=== PATIENT | female | born 1945 | race Caucasian/White ===

== ENCOUNTER 2019-04-09 19:02 | Emergency (ER) | payer MEDICARE, MEDICAID ==
[~2019-04-09] VITALS: Ht 162.6 cm; Wt 47.2 kg
--- NOTE | 2019-04-09 19:20 | NUR ---
PRESENTED TO THE ER W/ C/O GENERALIZED BODY RASHED AND ABD PAIN. -N/V. NO DYSURIA. NO HEMATURIA
[2019-04-09] MEDS ORDERED: IV NS 0.9% 1,000 ML BAG IV ONE (19:30)
[2019-04-09 19:39] LABS: BASOPHILS # (AUTO) 0.1 /CMM (0.0-0.2); EOSINOPHILS % (AUTO) 2.6 % (0.0-6.0); HEMATOCRIT 46 % (33-45); HEMOGLOBIN 15.5 g/dL (11.5-14.8); LYMPHOCYTES % (AUTO) 23.2 % (20.0-44.0); MEAN CORPUSCULAR HGB CONC 34 g/dl (31.0-36.0); MEAN CORPUSCULAR VOLUME 91 fL (82-100); MONOCYTES # (AUTO) 0.6 /CMM (0.1-1.30); MONOCYTES % (AUTO) 6.4 % (2.0-12.0); NEUTROPHILS # (AUTO) 5.8 /CMM (1.8-8.9); NEUTROPHILS % (AUTO) 66.8 % (43.0-81.0); PLATELET COUNT (AUTO) 359 /CMM (150-450); RED BLOOD CELL COUNT(AUTO) 5.06 MIL/uL (4.0-5.2); WHITE BLOOD COUNT (AUTO) 8.7 K/uL (4.3-11.0)
[2019-04-09] MEDS ORDERED: diphenhydrAMINE HCL 50 MG/ML VIAL ONE (19:42)
[2019-04-09] MEDS ORDERED: MAG HYDROX/AL HYDROX/SIMETH 30 ML UDC ONE (19:42)
--- NOTE | 2019-04-09 19:45 | NUR ---
LEFT FOR CT
[2019-04-09 19:56] LABS: CALCIUM, SERUM 9.3 mg/dL (8.5-10.1); CARBON DIOXIDE 28 mmol/L (21-32); CHLORIDE 94 mmol/L (98-107); CREATININE 0.9 mg/dL (0.6-1.3); GLUCOSE 93 mg/dL (74-106); POTASSIUM 3.5 mmol/L (3.5-5.1); SODIUM SERUM 132 mmol/L (136-145); UREA NITROGEN, BLOOD 9 mg/dL (7-18)
[2019-04-09 19:59] LABS: APPEARANCE,URINE CLEAR (CLEAR); BILIRUBIN,URINE NEGATIVE (NEGATIVE); BLOOD, URINE NEGATIVE Ery/uL (NEGATIVE); COLOR,URINE YELLOW (YELLOW); KETONES,URINE NEGATIVE (NEGATIVE); LEUKOCYTE ESTERASE ,URINE NEGATIVE (NEGATIVE); NITRITE, URINE NEGATIVE (NEGATIVE); PH,URINE 7.5 (5.0-8.0); PROTEIN,URINE NEGATIVE (NEGATIVE); UGLUCOSE NEGATIVE (NEGATIVE); UROBILINOGEN,URINE 0.2 EU/dL (0.2)
[2019-04-09] MEDS ORDERED: MAG HYDROX/AL HYDROX/SIMETH 30 ML UDC PO ONE (20:00)
[2019-04-09] MEDS ORDERED: diphenhydrAMINE HCL 50 MG/ML VIAL IV ONE (20:00)
[2019-04-09 20:03] LABS: ALANINE AMINOTRANSFERASE 24 U/L (12-78); ALKALINE PHOSPHATASE 67 U/L (46-116); ASPARTATE AMINOTRANSFERASE 19 U/L (15-37); BILIRUBIN,DIRECT 0.1 mg/dL (0.0-0.2); BILIRUBIN,TOTAL 0.6 mg/dL (0.2-1.0); LIPASE 197 U/L (73-393); TOTAL PROTEIN, SERUM 8.3 g/dL (6.4-8.2)
[2019-04-09] MEDS ORDERED: FAMOTIDINE/PF INJ 20 MG/2 ML VIAL IV ONE ×2 (20:30→20:34)
[2019-04-09] MEDS ORDERED: predniSONE 10 MG TABLET PO ONE (20:30)
[2019-04-09] MEDS ORDERED: predniSONE 20 MG TABLET ONE (20:34)
--- NOTE | 2019-04-09 21:35 | NUR ---
CALLED FOR S TRANSPORT, 30 MIN ETA (APPROX [id number]), TRIP # [id number]
--- NOTE | 2019-04-09 22:30 | NUR ---
TRANSFERRED BACK TO THE FASCILITY IN STABLE CONDITION REPORT GIVEN TO ERNESTINE
[2019-04-09 22:48] VITALS: BP 142/85
== END 2019-04-09 22:49 | disposition home or self-care (01) ==
LOC: ER 19:09
DX: R10.13 Epigastric pain (principal); G89.29 Other chronic pain; R21 Rash and other nonspecific skin eruption; I10 Essential (primary) hypertension; E78.5 Hyperlipidemia, unspecified; J44.9 Chronic obstructive pulmonary disease, unspecified; Z88.1 Allergy status to other antibiotic agents; Z88.8 Allergy status to other drugs, medicaments and biological substances; Z88.6 Allergy status to analgesic agent
CPT/HCPCS: 36415; 71045; 74176; 80048; 80076; 81001; 82962; 83690; 84484; 85025; 93005; 96374; 96375; 99284; J1200; J3490; J7030; J7512; 81000-TC

== ENCOUNTER 2019-04-17 16:54 | Emergency (ER) | payer MEDICARE, MEDICAID ==
[~2019-04-17] VITALS: Ht 162.6 cm; Wt 47.6 kg
--- NOTE | 2019-04-17 16:54 | NUR ---
JOSE D FROM SNF FOR WORSENING SOB; PT AAOX4, PT ON MONITOR, VSS, NAD MD KRISTIAN AT FOR EVAL
[2019-04-17] MEDS ORDERED: FAMO40TA7 PO (17:33)
[2019-04-17] MEDS ORDERED: BUDE10.2 IH (17:33)
[2019-04-17] MEDS ORDERED: DIPH25CA46 PO (17:33)
[2019-04-17] MEDS ORDERED: CETI-108 PO (17:33)
[2019-04-17] MEDS ORDERED: FERR325T23 PO (17:33)
[2019-04-17] MEDS ORDERED: MULT-447 PO (17:33)
[2019-04-17] MEDS ORDERED: IV NS 0.9% 500 ML BAG IV ONE (18:00)
[2019-04-17 18:09] LABS: BASOPHILS # (AUTO) 0.1 /CMM (0.0-0.2); EOSINOPHILS % (AUTO) 5.4 % (0.0-6.0); HEMATOCRIT 41 % (33-45); HEMOGLOBIN 13.7 g/dL (11.5-14.8); LYMPHOCYTES % (AUTO) 26.4 % (20.0-44.0); MEAN CORPUSCULAR HGB CONC 33 g/dl (31.0-36.0); MEAN CORPUSCULAR VOLUME 92 fL (82-100); MONOCYTES # (AUTO) 0.6 /CMM (0.1-1.30); MONOCYTES % (AUTO) 7.7 % (2.0-12.0); NEUTROPHILS # (AUTO) 4.5 /CMM (1.8-8.9); NEUTROPHILS % (AUTO) 59.5 % (43.0-81.0); PLATELET COUNT (AUTO) 251 /CMM (150-450); RED BLOOD CELL COUNT(AUTO) 4.46 MIL/uL (4.0-5.2); WHITE BLOOD COUNT (AUTO) 7.5 K/uL (4.3-11.0)
[2019-04-17 18:15] LABS: CALCIUM, SERUM 9.4 mg/dL (8.5-10.1); CARBON DIOXIDE 30 mmol/L (21-32); CHLORIDE 98 mmol/L (98-107); CREATININE 1.2 mg/dL (0.6-1.3); GLUCOSE 89 mg/dL (74-106); POTASSIUM 4.4 mmol/L (3.5-5.1); SODIUM SERUM 133 mmol/L (136-145); UREA NITROGEN, BLOOD 12 mg/dL (7-18)
[2019-04-17 18:21] LABS: ALANINE AMINOTRANSFERASE 23 U/L (12-78); ALBUMIN 3.3 g/dL (3.4-5.0); ALKALINE PHOSPHATASE 56 U/L (46-116); ASPARTATE AMINOTRANSFERASE 17 U/L (15-37); BILIRUBIN,DIRECT 0.1 mg/dL (0.0-0.2); BILIRUBIN,TOTAL 0.4 mg/dL (0.2-1.0); TOTAL PROTEIN, SERUM 6.8 g/dL (6.4-8.2)
[2019-04-17 18:58] LABS: APPEARANCE,URINE Clear (CLEAR); BILIRUBIN,URINE SMALL (NEGATIVE); BLOOD, URINE Negative Ery/uL (NEGATIVE); COLOR,URINE Yellow (YELLOW); KETONES,URINE Trace (NEGATIVE); LEUKOCYTE ESTERASE ,URINE Small (NEGATIVE); NITRITE, URINE Negative (NEGATIVE); PROTEIN,URINE Negative (NEGATIVE); UGLUCOSE Negative (NEGATIVE); UROBILINOGEN,URINE 0.2 EU/dL (0.2)
[2019-04-17 19:20] LABS: BACTERIA,URINE 2+ /HPF (None Seen); RBC,URINE NONE SEEN /HPF (0-2); SQUAMOUS EPITHELIAL CELL,UR Moderate /HPF (None Seen); WBC,URINE 21-50 /HPF (0-3)
[2019-04-17] MEDS ORDERED: diphenhydrAMINE HCL 50 MG/ML VIAL IV ONE (19:30)
[2019-04-17] MEDS ORDERED: NITROFURANTOIN/NITROFURAN MAC 100 MG CAPSULE PO ONE (19:30)
[2019-04-17] MEDS ORDERED: NITROFURANTOIN/NITROFURAN MAC 100 MG CAPSULE ONE (19:41)
[2019-04-17] MEDS ORDERED: diphenhydrAMINE HCL 50 MG/ML VIAL ONE (19:41)
[2019-04-17 20:00] VITALS: BP 119/65
--- NOTE | 2019-04-17 21:57 | NUR ---
CALLED [facility] FOR TRANSPORTATION TRIP #[id number], ETA [phone]
--- NOTE | 2019-04-17 23:23 | NUR ---
REPORT GIVEN TO LISY AT [facility].
--- NOTE | 2019-04-18 01:16 | NUR ---
PT TRANSPORTED BACK TO [facility], PT TRANSPORTED VIA PRIVATE AMBULANCE, VSS, PT IN STABLE CONDITION, REPORT GIVEN TO AMBULANCE STAFF.
== END 2019-04-18 01:18 ==
LOC: ER 16:57
DX: N39.0 Urinary tract infection, site not specified (principal); R06.00 Dyspnea, unspecified; I10 Essential (primary) hypertension; J44.9 Chronic obstructive pulmonary disease, unspecified; I25.10 Atherosclerotic heart disease of native coronary artery without angina pectoris; E78.00 Pure hypercholesterolemia, unspecified; E78.5 Hyperlipidemia, unspecified; Z98.890 Other specified postprocedural states; Z88.1 Allergy status to other antibiotic agents; Z88.8 Allergy status to other drugs, medicaments and biological substances; Z88.6 Allergy status to analgesic agent
CPT/HCPCS: 36415; 71045; 80048; 80076; 81001; 84484; 85025; 87086; 93005 ×2; 96374; 99284; J1200; J7040; 81000-TC

== ENCOUNTER 2019-11-29 18:49 | Inpatient (IN) | payer MEDICARE, MEDICAID ==
[~2019-11-29] VITALS: Ht 167.6 cm; Wt 45.8 kg
[~2019-11-29 18:49] MED LIST: BUDE10.2 IH; CETI-108 PO; DIPH25CA46 PO; FAMO40TA7 PO; FERR325T23 PO; MULT-447 PO
--- NOTE | 2019-11-29 19:28 | NUR ---
PT CAME TO ER BED 11 WITH NO COMPLAINTS. PT STATES SHE IS FROM A [facility] HOME. PT DOES NOT UNDERSTAND WHY SHE IS IN THE ER. PT DOES KNOW SHE WAS BROUGHT BY THE AMBULANCE. UNABLE TO VERIFY MEDICAL HISTORY. PT PASSED STROKE TEST AND SWALLOW EVAL WITH NO NEURO DEFICITS. AAOX4. BREATHING EVENLY AND UNLABORED ON 2L OF NASAL CANNULA. CONNECTED TO MONITOR.
--- NOTE | 2019-11-29 19:38 | NUR ---
SEEN AND EXAMINED BY
[2019-11-29 20:00] LABS: BASOPHILS # (AUTO) 0.1 /CMM (0.0-0.2); BASOPHILS % (AUTO) 1.1 % (0.0-2.0); EOSINOPHILS % (AUTO) 1.9 % (0.0-6.0); HEMATOCRIT 34 % (33-45); HEMOGLOBIN 11.4 g/dL (11.5-14.8); LYMPHOCYTES # (AUTO) 1.2 /CMM (0.8-4.8); LYMPHOCYTES % (AUTO) 17.9 % (20.0-44.0); MEAN CORPUSCULAR HGB CONC 34 g/dl (31.0-36.0); MEAN CORPUSCULAR VOLUME 96 fL (82-100); MONOCYTES # (AUTO) 0.7 /CMM (0.1-1.30); MONOCYTES % (AUTO) 10.6 % (2.0-12.0); NEUTROPHILS # (AUTO) 4.5 /CMM (1.8-8.9); NEUTROPHILS % (AUTO) 68.5 % (43.0-81.0); PLATELET COUNT (AUTO) 238 /CMM (150-450); RED BLOOD CELL COUNT(AUTO) 3.49 MIL/uL (4.0-5.2); WHITE BLOOD COUNT (AUTO) 6.5 K/uL (4.3-11.0)
[2019-11-29] MEDS ORDERED: IV NS 0.9% 1,000 ML BAG IV ONE (20:00)
--- NOTE | 2019-11-29 20:01 | NUR ---
BLOOD DRAWN AND SENT WITH DIVISION SUPERINTENDENT
[2019-11-29 20:09] LABS: CALCIUM, SERUM 8.9 mg/dL (8.5-10.1); CARBON DIOXIDE 31 mmol/L (21-32); CHLORIDE 91 mmol/L (98-107); CREATININE 0.8 mg/dL (0.6-1.3); GLUCOSE 161 mg/dL (74-106); POTASSIUM 4.1 mmol/L (3.5-5.1); SODIUM SERUM 128 mmol/L (136-145); UREA NITROGEN, BLOOD 16 mg/dL (7-18)
[2019-11-29 20:22] LABS: ALANINE AMINOTRANSFERASE 31 U/L (12-78); ALBUMIN 3.6 g/dL (3.4-5.0); ALKALINE PHOSPHATASE 56 U/L (46-116); ASPARTATE AMINOTRANSFERASE 23 U/L (15-37); BILIRUBIN,DIRECT 0.1 mg/dL (0.0-0.2); BILIRUBIN,TOTAL 0.3 mg/dL (0.2-1.0); TOTAL PROTEIN, SERUM 7.2 g/dL (6.4-8.2)
[2019-11-29 20:25] LABS: APPEARANCE,URINE Slightly Cloudy (CLEAR); BILIRUBIN,URINE Negative (NEGATIVE); BLOOD, URINE Negative Ery/uL (NEGATIVE); COLOR,URINE Dark (YELLOW); KETONES,URINE Negative (NEGATIVE); LEUKOCYTE ESTERASE ,URINE Small (NEGATIVE); NITRITE, URINE Negative (NEGATIVE); PROTEIN,URINE Negative (NEGATIVE); UGLUCOSE Negative (NEGATIVE); UROBILINOGEN,URINE 0.2 EU/dL (0.2)
--- NOTE | 2019-11-29 20:26 | NUR ---
URINE COLLECTED AND SENT TO LAB
[2019-11-29 20:49] LABS: BACTERIA,URINE Many /HPF (None Seen); RBC,URINE 0-2 /HPF (0-2); SQUAMOUS EPITHELIAL CELL,UR Few /HPF (None Seen)
[2019-11-29] MEDS ORDERED: LEVOFLOXACIN (500MG) 500 MG TABLET ONE (21:28)
[2019-11-29] MEDS ORDERED: LEVOFLOXACIN (500MG) 500 MG TABLET PO ONE (21:30)
--- NOTE | 2019-11-29 21:40 | NUR ---
CALLED [facility] TO UPDATE PT STATUS. MARNI ANDERSON SAID THEY "DO NOT WANT THE PT BACK AND ARE ARRANGING TO HAVE THE PT LIVE AT A HIGHER SKILLED FACILITY". SAID "IT WILL TAKE A DAY OR TWO TO HAVE THE PT PLACED SOMEWHERE ELSE".
--- NOTE | 2019-11-29 22:07 | NUR ---
CALLED [facility] FOR MS BED.
[2019-11-29] MEDS ORDERED: IV NS 0.9% 1,000 ML IV PRN (22:49)
--- NOTE | 2019-11-29 22:58 | NUR ---
REPORT GIVEN TO YAMILETH HAINES FOR RAFAEL.
[2019-11-29 23:00] VITALS: BP 136/70
[2019-11-29] MEDS ORDERED: IPRATROPIUM NEB FS 0.5 MG/2.5 ML AMPUL.NEB NEB PRN (23:00)
[2019-11-29] MEDS ORDERED: MORPHINE SULFATE INJ 2 MG/ML DISP.SYRIN IV PRN (23:00)
[2019-11-29] MEDS ORDERED: ACETAMINOPHEN 325 MG TABLET PO PRN (23:00)
[2019-11-29] MEDS ORDERED: ZOLPIDEM TARTRATE 5 MG TABLET PO PRN (23:00)
[2019-11-29] MEDS ORDERED: Z GUARD REMEDY 2 OZ OINT TP PRN (23:00)
[2019-11-29] MEDS ORDERED: ONDANSETRON HCL/PF 4 MG/2 ML VIAL IVP PRN (23:00)
[2019-11-29] MEDS ORDERED: HYDROCODONE/APAP 5/325MG 1 EACH TABLET PO PRN (23:00)
[2019-11-29] MEDS ORDERED: MAGNESIUM HYDROXIDE 30 ML UDC PO PRN (23:00)
[2019-11-29] MEDS ORDERED: ALBUTEROL FS 2.5 MG/0.5 ML VIAL.NEB NEB PRN (23:00)
[2019-11-29] MEDS ORDERED: MAG HYDROX/AL HYDROX/SIMETH 30 ML UDC PO PRN (23:00)
--- NOTE | 2019-11-29 23:00 | NUR ---
MS RN ADMITTING NOTES PATIENT ARRIVED ON UNIT VIA GURNEY; ACCOMPANIED BY ER STAFF; PATIENT AWAKE, A/O X3; PATIENT ON 2L NC, TOLERATING WELL; NO SOB; NO S/S OF ACUTE RESPIRATORY DISTRESS NOTED; BREATHING EVEN AND UNLABORED; PATIENT ABLE TO AMBULATE WITH ASSISTANCE; SKIN ASSESSMENT DONE AND PICTURES TAKEN; FILED IN PATIENT BINDER; SAFETY PRECAUTIONS IN PLACE; BED LOCKED IN LOW POSITION; BILATERAL SIDE RAILS X2; CALL LIGHT WITHIN REACH; WILL CONTINUE TO MONITOR
[2019-11-29 23:50] VITALS: BP 136/70
--- NOTE | 2019-11-30 06:35 | NUR ---
MS RN CLOSING NOTES PATIENT RESTING IN BED COMFORTABLY; A/O X3; PATIENT ON 2L NC; TOLERATING WELL, NO SOB, NO S/S OF ACUTE RESPIRATORY DISTRESS NOTED; BREATHING EVEN AND UNLABORED; R FA #20 RUNNING NS @ 75ML/HR; ALL NEEDS TENDED TO; SAFETY PRECAUTIONS IN PLACE; BED LOCKED IN LOW POSITION; BILATERAL SIDE RAILS X2; CALL LIGHT WITHIN EASY REACH; WILL ENDORSE CONTINUITY OF CARE TO ONCOMING SHIFT
--- NOTE | 2019-11-30 07:25 | NUR ---
MS RN OPENING NOTES RECEIVED PATIENT IN BED RESTING COMFORTABLY IN MODERATE HIGH BACK REST; A/O X3; PATIENT ON 2L NC; TOLERATING WELL, NO ACUTE SIGNS OF DISTRESS NOTED AT THIS TIME. IV FLUIDS ON RFA #20 RUNNING NS @ 75ML/HR; PATENT AND INTACT; SAFETY PRECAUTIONS IN PLACE; BED LOCKED IN LOW POSITION; BILATERAL SIDE RAILS X2; CALL LIGHT WITHIN EASY REACH; WILL CONTINUE TO MONITOR.
[2019-11-30 07:30] LABS: BASOPHILS # (AUTO) 0.1 /CMM (0.0-0.2); EOSINOPHILS % (AUTO) 3.8 % (0.0-6.0); HEMATOCRIT 34 % (33-45); HEMOGLOBIN 11.7 g/dL (11.5-14.8); LYMPHOCYTES # (AUTO) 1.3 /CMM (0.8-4.8); LYMPHOCYTES % (AUTO) 24.4 % (20.0-44.0); MEAN CORPUSCULAR HGB CONC 34 g/dl (31.0-36.0); MEAN CORPUSCULAR VOLUME 96 fL (82-100); MONOCYTES # (AUTO) 0.5 /CMM (0.1-1.30); MONOCYTES % (AUTO) 10.1 % (2.0-12.0); NEUTROPHILS # (AUTO) 3.2 /CMM (1.8-8.9); NEUTROPHILS % (AUTO) 60.7 % (43.0-81.0); PLATELET COUNT (AUTO) 252 /CMM (150-450); RED BLOOD CELL COUNT(AUTO) 3.57 MIL/uL (4.0-5.2); WHITE BLOOD COUNT (AUTO) 5.3 K/uL (4.3-11.0)
[2019-11-30 07:51] LABS: CALCIUM, SERUM 8.5 mg/dL (8.5-10.1); CREATININE 0.7 mg/dL (0.6-1.3); MAGNESIUM 1.7 mg/dL (1.8-2.4); PHOSPHORUS 3.2 mg/dL (2.5-4.9); POTASSIUM 3.7 mmol/L (3.5-5.1)
[2019-11-30 08:00] VITALS: BP 150/74
[2019-11-30] MEDS ORDERED: diphenhydrAMINE HCL 25 MG CAPSULE PO PRN (08:00)
[2019-11-30] MEDS: PANTOPRAZOLE 40 MG TABLET.DR PO SCH (08:46)
[2019-11-30] MEDS: FLUTICASONE/VILANTEROL 1 EACH BLST.W.DEV IH SCH (08:46)
[2019-11-30] MEDS: FERROUS SULFATE (325 MG) 325 MG/TAB TABLET PO SCH (08:46)
[2019-11-30] MEDS: cetrizine 10 MG TABLET PO SCH (08:46)
[2019-11-30] MEDS: MULTIVIT W/MINERALS 1 TAB TABLET PO SCH (08:47)
[2019-11-30] MEDS: Magnesium 1GM/D5W 100ML PREMIX 100 ML IV SCH ×2 (09:38→10:45)
[2019-11-30 16:00] VITALS: BP 128/66
[2019-11-30] MEDS: ENSURE ENLIVE 237 ML LIQUID (VANILLA) PO SCH (17:44)
--- NOTE | 2019-11-30 18:53 | NUR ---
MS RN OPENING NOTES PATIENT IN BED RESTING COMFORTABLY IN MODERATE HIGH BACK REST; A/O X3; PATIENT ON 2L NC; TOLERATING WELL, NO ACUTE SIGNS OF DISTRESS NOTED THROUGHOUT THE SHIFT. IV FLUIDS ON RFA #20 RUNNING NS @ 75ML/HR; PATENT AND INTACT; SAFETY PRECAUTIONS IN PLACE; BED LOCKED IN LOW POSITION; BILATERAL SIDE RAILS X2; CALL LIGHT WITHIN EASY REACH; WILL ENDORSE TO SHOE PLANNER NURSE FOR RAFAEL. Addendum: 11/30/19 at 1854 by SUSU KLEIN RN CLOSING NOTES
--- NOTE | 2019-11-30 19:41 | NUR ---
MS RN CLOSING NOTES PATIENT RESTING IN BED COMFORTABLY; A/O X3; NO SOB; NO S/S OF ACUTE RESPIRATORY DISTRESS NOTED; BREATHING EVEN AND UNLABORED; PATIENT TOLERATING 2L NC WELL; R FA 320 RUNNING NS @ 75ML/HR; NO S/S OF REDNESS OR INFILTRATION; IV SITE INTACT AND PATENT; SAFETY PRECAUTIONS IN PLACE; BED LOCKED IN LOW POSITION; BILATERAL SIDE RAILS X2; CALL LIGHT WITHIN REACH; WILL CONTINUE TO MONITOR
[2019-11-30 20:00] VITALS: BP 133/78
[2019-11-30] MEDS: LEVOFLOXACIN (250MG) 250 MG TABLET PO SCH (21:15)
[2019-11-30] MEDS: FAMOTIDINE (20 MG) 20 MG TABLET PO SCH (21:15)
--- NOTE | 2019-12-01 05:51 | NUR ---
MS RN NOTES R FA #20 INFILTRATED; PATIENT REFUSING TO HAVE NEW IV ACCESS; PATIENT WAS EDUCATED ON IMPORTANCE OF IV ACCESS DURING HOSPITALIZATION; PATIENT STILL REFUSED; WILL TRY AGAIN AND INFORM ONCOMING NURSE
--- NOTE | 2019-12-01 06:50 | NUR ---
MS RN CLOSING NOTES PATIENT AWAKE, A/O X3; RESTING COMFORTABLY IN BED; NO SOB; NO S/S OF ACUTE RESPIRATORY DISTRESS NOTED; IV SITE REMOVED; IV TIP INTACT; ATTEMPTED IV ACCESS X2; NOT ABLE TO GET IV ACCESS; ALL NEEDS TENDED TO; SAFETY PRECAUTIONS IN PLACE; SIDE RAILS X2; BED LOCKED IN LOW POSITION; CALL LIGHT WITHIN REACH; WILL ENDORSE CONTINUITY OF CARE TO ONCOMING NURSE;
[2019-12-01 07:26] LABS: CALCIUM, SERUM 8.4 mg/dL (8.5-10.1); CREATININE 0.7 mg/dL (0.6-1.3); PHOSPHORUS 3.2 mg/dL (2.5-4.9); POTASSIUM 4.1 mmol/L (3.5-5.1)
[2019-12-01 07:29] LABS: BASOPHILS # (AUTO) 0.1 /CMM (0.0-0.2); BASOPHILS % (AUTO) 1.1 % (0.0-2.0); EOSINOPHILS % (AUTO) 3.5 % (0.0-6.0); HEMATOCRIT 37 % (33-45); HEMOGLOBIN 12.7 g/dL (11.5-14.8); LYMPHOCYTES # (AUTO) 1.6 /CMM (0.8-4.8); LYMPHOCYTES % (AUTO) 23.3 % (20.0-44.0); MEAN CORPUSCULAR HGB CONC 34 g/dl (31.0-36.0); MEAN CORPUSCULAR VOLUME 96 fL (82-100); MONOCYTES # (AUTO) 0.9 /CMM (0.1-1.30); MONOCYTES % (AUTO) 12.5 % (2.0-12.0); NEUTROPHILS # (AUTO) 4.1 /CMM (1.8-8.9); NEUTROPHILS % (AUTO) 59.6 % (43.0-81.0); PLATELET COUNT (AUTO) 235 /CMM (150-450); RED BLOOD CELL COUNT(AUTO) 3.88 MIL/uL (4.0-5.2); WHITE BLOOD COUNT (AUTO) 6.9 K/uL (4.3-11.0)
[2019-12-01 08:25] VITALS: BP 132/61
[2019-12-01] MEDS: ENSURE ENLIVE 237 ML LIQUID (VANILLA) PO SCH ×3 (09:44→17:00)
[2019-12-01] MEDS: FLUTICASONE/VILANTEROL 1 EACH BLST.W.DEV IH SCH (09:53)
[2019-12-01] MEDS: PANTOPRAZOLE 40 MG TABLET.DR PO SCH (09:54)
[2019-12-01] MEDS: cetrizine 10 MG TABLET PO SCH (09:54)
[2019-12-01] MEDS: MULTIVIT W/MINERALS 1 TAB TABLET PO SCH (09:54)
[2019-12-01] MEDS: FERROUS SULFATE (325 MG) 325 MG/TAB TABLET PO SCH (09:54)
[2019-12-01 16:45] VITALS: BP_SYST 106; BP_SYST 88; BP_DIAS 49; BP_DIAS 67
--- NOTE | 2019-12-01 18:00 | NUR ---
no iv acccess,refusing,attempting to get oob from time to time,house furnishings supervisor informed,to have sitter this francisco javier.
--- NOTE | 2019-12-01 19:50 | NUR ---
RN OPENING NOTES RECEIVED REPORT FROM DAYSIAFT YANCY LAWRENCE. FOUND Pt ASLEEP, RESTING IN BED, EASILY AWAKENED BY NAME. NO S/S OF ACUTE DISTRESS OR SOB NOTED. Pt IS A/OX2, VERBAL, ABLE TO MAKE NEEDS KNOWN, FORGETFUL AT TIMES. SITTER AT BEDSIDE. NO IV ACCESS, MD AWARE. Pt IS STILL REFUSING FOR NEW IV ACCESS. SAFETY MEASURES IN PLACE. BED LOW, LOCKED, HOB ELEVATED, SIDE RAILS UP, CALL LIGHT AND BEDSIDE TABLE WITHIN REACH. BED ALARM ON. SITTER IN ROOM. WILL CONTINUE TO MONITOR Pt's CONDITION AND SAFETY THROUGHOUT THE NIGHT.
[2019-12-01 20:00] VITALS: BP 101/69
[2019-12-01] MEDS: LEVOFLOXACIN (250MG) 250 MG TABLET PO SCH (23:54)
[2019-12-01] MEDS: FAMOTIDINE (20 MG) 20 MG TABLET PO SCH (23:54)
[2019-12-02 07:35] LABS: BASOPHILS # (AUTO) 0.1 /CMM (0.0-0.2); BASOPHILS % (AUTO) 0.8 % (0.0-2.0); EOSINOPHILS % (AUTO) 2.9 % (0.0-6.0); HEMATOCRIT 33 % (33-45); HEMOGLOBIN 11.4 g/dL (11.5-14.8); LYMPHOCYTES # (AUTO) 1.3 /CMM (0.8-4.8); LYMPHOCYTES % (AUTO) 17.7 % (20.0-44.0); MEAN CORPUSCULAR HGB CONC 34 g/dl (31.0-36.0); MEAN CORPUSCULAR VOLUME 96 fL (82-100); MONOCYTES # (AUTO) 0.7 /CMM (0.1-1.30); MONOCYTES % (AUTO) 10.2 % (2.0-12.0); NEUTROPHILS # (AUTO) 4.9 /CMM (1.8-8.9); NEUTROPHILS % (AUTO) 68.4 % (43.0-81.0); PLATELET COUNT (AUTO) 232 /CMM (150-450); RED BLOOD CELL COUNT(AUTO) 3.46 MIL/uL (4.0-5.2); WHITE BLOOD COUNT (AUTO) 7.1 K/uL (4.3-11.0)
--- NOTE | 2019-12-02 07:39 | NUR ---
RN CLOSING NOTES NO SIGNIFICANT CHANGES IN Pt's CONDITION. NO S/S OF ACUTE DISTRESS OR SOB NOTED DURING THE NIGHT. ALL NEEDS MET AND ATTENDED TO. SAFETY MEASURES IN PLACE. Pt IS RESTING IN BED, WITH UNLABORED RESPIRATIONS & EQUAL CHEST RISE AND FALL. ENDORSED TO DAYSHIFT RN FOR Pt's RAFAEL.
[2019-12-02] MEDS: PANTOPRAZOLE 40 MG TABLET.DR PO SCH (07:44)
--- NOTE | 2019-12-02 08:00 | NUR ---
MS/RN NOTES PATIENT REFUSED TO PUT IT BACK THE OXYGEN [id number] MD IS AWARE.
--- NOTE | 2019-12-02 08:00 | NUR ---
MS/RN OPENING NOTES RECEIVED PATIENT AWAKE LYING IN BED COMFORTABLY. ALERT AND ORIENTED X2. NO S/S OF ACUTE DISTRESS OR SOB NOTED. SAFETY MEASURES IN PLACE. BED IN LOWEST POSITION AND LOCKED. SIDE RAILS UP X2. CALL LIGHT WITHIN REACH. WILL CONTINUE TO MONITOR.
[2019-12-02 08:22] LABS: CALCIUM, SERUM 8.9 mg/dL (8.5-10.1); CREATININE 0.7 mg/dL (0.6-1.3); MAGNESIUM 1.7 mg/dL (1.8-2.4); PHOSPHORUS 4.2 mg/dL (2.5-4.9)
[2019-12-02] MEDS: MULTIVIT W/MINERALS 1 TAB TABLET PO SCH (08:34)
[2019-12-02] MEDS: FERROUS SULFATE (325 MG) 325 MG/TAB TABLET PO SCH (08:34)
[2019-12-02] MEDS: FLUTICASONE/VILANTEROL 1 EACH BLST.W.DEV IH SCH (08:34)
[2019-12-02] MEDS: cetrizine 10 MG TABLET PO SCH (08:34)
[2019-12-02] MEDS: ENSURE ENLIVE 237 ML LIQUID (VANILLA) PO SCH ×3 (08:38→17:00)
[2019-12-02] MEDS ORDERED: MAGNESIUM OXIDE 400 MG TABLET PO ONE (09:30)
--- NOTE | 2019-12-02 18:07 | NUR ---
MS/RN NOTES PATIENT IS DISCHARGE
--- NOTE | 2019-12-02 18:09 | NUR ---
MS/RN CLOSING NOTES PATIENT IS ALERT AND ORIENTED X2. PATIENT DENIES PAIN AT THIS TIME. RESPIRATION REGULAR AND UNLABORED. THE PATIENT WITH NO APPARENT DISTRESS. SEEN AND EXAMINED BY MD WITH ORDERS MADE AND CARRIED OUT. PATIENT WAS GIVEN DISCHARGED INSTRUCTIONS AND PATIENT VERBALIZED UNDERSTANDING. THE PATIENT LEFT THE HOSPITAL IN A STABLE CONDITION. ACCOMPANIED BY 2 EMT VIA AMBULANCE.
== END 2019-12-02 17:30 | DRG 689 ==
LOC: ER 18:49 → MED 22:39
PROVIDERS: ADMIT Nurse Practitioner Acute Care; ATTEND Internal Medicine
DX: N39.0 Urinary tract infection, site not specified (principal); E43 Unspecified severe protein-calorie malnutrition; G93.41 Metabolic encephalopathy; E87.1 Hypo-osmolality and hyponatremia; Z68.1 Body mass index [BMI] 19.9 or less, adult; E03.9 Hypothyroidism, unspecified; E86.9 Volume depletion, unspecified; F32.9 Major depressive disorder, single episode, unspecified; I10 Essential (primary) hypertension; I25.10 Atherosclerotic heart disease of native coronary artery without angina pectoris; J44.9 Chronic obstructive pulmonary disease, unspecified; K21.9 Gastro-esophageal reflux disease without esophagitis; N32.81 Overactive bladder; Z79.51 Long term (current) use of inhaled steroids; Z87.891 Personal history of nicotine dependence; E78.5 Hyperlipidemia, unspecified; M62.50 Muscle wasting and atrophy, not elsewhere classified, unspecified site; R42 Dizziness and giddiness; R53.1 Weakness; B96.89 Other specified bacterial agents as the cause of diseases classified elsewhere
CPT/HCPCS: 36415; 71045-TC; 80048-TC; 80061-TC; 80076-TC; 81000-TC; 83735-TC; 84100-TC; 84484-TC; 85025-TC; 87081-TC; 87086-TC; 92521; 97110-TC; 97116-TC; 97530-TC; 97535-TC; G0378; J3475; J7030